=== PATIENT | female | born 1995 | race Caucasian/White ===

== ENCOUNTER 2019-02-10 06:19 | Inpatient (IN) ==
[2019-02-10] MEDS ORDERED: D5 1/2 NS 1000 ML 1,000 ML ONE (06:26)
[2019-02-10] MEDS ORDERED: D5LR 1L W PITOCIN 10 UNITS/L 10 UNITS/1,000 ML BAG IV ONE (06:26)
[2019-02-10] MEDS ORDERED: D5 1/2 NS 1L W PITOCIN 20 UNITS/L 20 UNITS/1,000 ML BAG IV ONE (06:26)
[2019-02-10] MEDS ORDERED: PITOCIN ONE (06:26)
--- NOTE | 2019-02-10 07:00 | DR.OB ---
OB Quick Note - Assessment/Plan Assessment/Plan: L&D 02/10/19 at 6:50am S-No complaint. O-Afebrile,VSS ROS=969 with good LTV, +accel, no decel CTX=none CVX=1cm/50%/-1/VTX AROM with clear fluid. IUPC placed. No perineal/vaginal lesions. A-IUP at 38 1/7 weeks for induction PIH P-Begin pitocin induction F/U preeclamptic labs Anticipate
[2019-02-10] MEDS ORDERED: PITOCIN IVP ONE (07:14)
[2019-02-10] MEDS ORDERED: D5 1/2 NS 1000 ML 1,000 ML IV SCH (07:14)
[2019-02-10] MEDS ORDERED: REGLAN INJ 10 MG VIAL IVP PRN (07:14)
[2019-02-10] MEDS ORDERED: D5LR 1L W PITOCIN 10 UNITS/L 10 UNITS/1,000 ML BAG IV PRN (07:14)
[2019-02-10] MEDS ORDERED: NUBAIN INJ 200 MG VIAL MULTIDOSE IVP PRN (07:14)
[2019-02-10] MEDS ORDERED: PHENERGAN INJ 25 MG IM PRN ×2 (07:14→15:16)
[2019-02-10] MEDS ORDERED: MORPHINE SULFATE INJ 2 MG INJ IVP PRN (07:14)
[2019-02-10 07:44] LABS: URIC ACID 4.9 mg/dL (2.6-6.0)
[2019-02-10] MEDS ORDERED: FENTANYL INJ 100 mcg ONE (09:17)
[2019-02-10] MEDS ORDERED: NAROPIN EPIDURAL 0.2% + FENTANYL 90MCG 60 ML EPI ONE (09:17)
[2019-02-10] MEDS ORDERED: LR 1000 ML IV 1,000 ML ONE (09:17)
[2019-02-10] MEDS ORDERED: EPHEDRINE SULFATE INJ ONE (11:20)
--- NOTE | 2019-02-10 12:05 | DR.OB ---
OB Quick Note - Assessment/Plan Assessment/Plan: L&D 02/10/19 at 11:55am Pitocin=16mu/min. S-No complaint. s/p epidural. O-Afebrile,VSS DBD=009 with good LTV, +accel, no decel. CTX=q 1 1/2 to 2 min., about 45-55mmHg CVX=3cm/75%/-1 A-IUP at 38 1/7 weeks for induction PIH P-Cont. pitocin induction Anticipate
[2019-02-10] MEDS ORDERED: MOTRIN TAB 800 MG PO PRN ×2 (15:16→16:01)
[2019-02-10] MEDS: D5 1/2 NS 1000 ML 1,000 ML with PITOCIN 20 UNITS IV SCH ×2 (15:40)
[2019-02-10] MEDS ORDERED: MILK OF MAGNESIA PO PRN (16:01)
[2019-02-10] MEDS ORDERED: ADACEL or BOOSTRIX TDaP VACCINE IM ONE (16:01)
[2019-02-10] MEDS ORDERED: DERMOPLAST SPRAY TOP PRN (16:01)
[2019-02-10] MEDS ORDERED: AMBIEN PO PRN (16:01)
[2019-02-10] MEDS: ZANTAC PO SCH (20:01)
[2019-02-11] MEDS: D5 1/2 NS 1000 ML 1,000 ML with PITOCIN 20 UNITS IV SCH ×2 (01:38)
[2019-02-11 04:09] LABS: HEMATOCRIT 30.5 % (36.0-47.0); HEMOGLOBIN 10.3 g/dL (12.0-16.0)
--- NOTE | 2019-02-11 07:58 | DR.OB ---
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 Head delivered over intact perineum. Nuchal cord x 1 reduced. Nose and mouth bulb suctioned. Body delivered over intact perineum. Cord clamped x 2 and cut. Infant handed to attendant. Cord sent for gases. Placenta delivered spontaneously / intact / 3 vessel cord. No CVX tears. A small midline second degree tear noted and repaired with 0-vicryl in usual fashion. Viable male , VTX/OA, wt=6'15" and 9/9, stable to NBN. Mother stable to RR. BQB=[id number].
[2019-02-11] MEDS: ZANTAC PO SCH (08:10)
[2019-02-11] MEDS ORDERED: COLACE CAP 100 MG PO PRN (08:14)
[2019-02-11] MEDS ORDERED: PRENATAL PLUS PO SCH (09:00)
[2019-02-11] MEDS ORDERED: VALTREX PO SCH (09:00)
[2019-02-11 16:47] VITALS: BP 117/54
== END 2019-02-11 16:45 | disposition home or self-care (01) | DRG 807 ==
LOC: LD 06:19 → MED/SURG 16:46
PROVIDERS: ADMIT Specialist; ATTEND Specialist
DX: O70.1 Second degree perineal laceration during delivery; Z37.0 Single live birth; Z3A.38 38 weeks gestation of pregnancy; O13.3 Gestational [pregnancy-induced] hypertension without significant proteinuria, third trimester
CPT/HCPCS: 36415; 59409; 83615; 84450; 84460; 84550; 85014; 85018; 85384; 85610; 85730; A4216; A4222; S0197; J2590; J3010; J3490; J7120; S5010